=== PATIENT | male | born 1965 | race Caucasian/White ===

== ENCOUNTER → 2018-12-28 | Outpatient (CLI) | payer OTHER ==
[~2018-12-28] MED LIST: AMLODIPINE BES2.5 MG PO; AMOXICILLIN,AM875 MG PO; CIPROFLOXACIN500 MG PO; CLARITIN10 MG PO; ECPIRIN325 MG PO; HYDR25T PO; MEDROL DOSEPAK4 MG PO; MOTRIN800 MG PO; MULTIVITAMIN1 TAB PO; NORVASC10 MG PO; PREVACID15 MG PO; ZITHROMAX Z PA250 MG PO
== END | disposition home or self-care (01) ==
LOC: RAD 10:14
DX: M25.512 Pain in left shoulder (principal); R20.0 Anesthesia of skin

== ENCOUNTER → 2020-12-25 | Outpatient (CLI) | payer OTHER | END | disposition home or self-care (01) | LOC: US 09:15 | PROVIDERS: ATTEND Nurse Practitioner Family | DX: K76.0 Fatty (change of) liver, not elsewhere classified (principal) ==